=== PATIENT | female | born 2000 | race Two or more races ===

== ENCOUNTER 2024-11-27 16:04 | Emergency (ER) | payer BC, OTHER ==
[~2024-11-27] VITALS: Ht 167.6 cm; Wt 75.4 kg
[2024-11-27 16:42] LABS: Hematocrit 42.2 % (36.0-46.0); Hemoglobin 14.4 g/dL (12.2-16.2); Mean Corpuscular Hemoglobin 27.3 pg (28.0-32.0); Mean Corpuscular Volume 79.9 fL (80.0-100.0); Nucleated Red Blood Cells % 0.3 %
[2024-11-27 16:51] LABS: Chloride 107 mmol/L (98-107); Sodium 141 mmol/L (136-145)
[2024-11-27 16:52] LABS: Anion Gap 9 (5-15); Calcium 9.3 mg/dL (8.7-10.4); Carbon Dioxide 25 mmol/L (20-31); Potassium 3.5 mmol/L (3.5-5.1)
[2024-11-27 16:57] LABS: BUN/Creatinine Ratio 15.4 (10.0-20.0); Blood Urea Nitrogen 12 mg/dL (9-23); Glucose 99 mg/dL (74-106); Lipase 46 U/L (12-53)
[2024-11-27 17:06] LABS: Urine Protein, UAD TRACE (Negative)
--- NOTE | 2024-11-27 17:09 | ED.PDOC ---
GI ASSESSMENT HPI Comments This is a 24 year old female presenting to the ED with chief complaint of abdominal pain. Patient reports that she has been experiencing stabbing epigastric pain with associated nausea since this morning. Patient relays that she has no history of abdominal illness or pancreatitis. Patient denies any vomiting, diarrhea, fever, chills, dysuria, flank pain, or chest pain. Vital signs were stable on arrival. 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 CONTINUOUS MINING MACHINE OPERATOR History Family History Family History: Reviewed,noncontributory to illness Social History Smoker: Non-Smoker Alcohol: Denies ETOH Use Drugs: Denies Drug Use Lives In: Home Constitutional: denies: chills, diaphoresis, fatigue, fever, malaise, sweats, weakness, others EENTM: denies: blurred vision, double vision, ear bleeding, ear discharge, ear drainage, ear pain, ear ringing, eye pain, eye redness, hearing loss, mouth pain, mouth swelling, nasal discharge, nose bleeding, nose congestion, nose pain, photophobia, tearing, throat pain, throat swelling, voice changes, others Respiratory: denies: cough, hemoptysis, orthopnea, SOB at rest, shortness of breath, SOB with excertion, stridor, wheezing, others Cardiovascular: denies: chest pain, dizzy spells, diaphoresis, Dyspnea on ex ertion, edema, irregular heart beat, left arm pain, lightheadedness, palpitations, PND, syncope, others Gastrointestinal: reports: abdominal pain, nausea; denies: abdomen distended, blood streaked bowels, constipated, diarrhea, dysphagia, difficulty swallowing, hematemesis, melena, poor appetite, poor fluid intake, rectal bleeding, rectal pain, vomiting, others Genitourinary: denies: abnormal vagina bleeding, burning, dyspareunia, dysuria, flank pain, frequency, hematuria, incontinence, pain, , vagina discharge, urgency, others Neurological: denies: dizziness, fainting, headache, left sided numbness, left sided weakness, numbness, paresthesia, pre-existing deficit, right sided numbness, right sided weakness, seizure, speech problems, tingling, tremors, weakness, others Musculoskeletal: denies: back pain, gout, joint pain, joint swelling, muscle pain, muscle stiffness, neck pain, others Integumetry: denies: bruises, change in color, change in hair/nails, dryness, laceration, lesions, lumps, rash, wounds, others Allergic/Immunocompromised: denies: Difficulty Healing, Frequent Infections, Hives, Itching, others Hematologic/Lymphatic: denies: anemia, blood clots, easy bleeding, easy bruisi ng, swollen glands, others Endocrine: denies: excessive hunger, excessive sweating, excessive thirst, exce ssive urination, flushing, intolerance to cold, intolerance to heat, unexplained weight gain, unexplained weight loss, others Psychiatric: denies: anxiety, bipolar disorder, depression, hopeless, panic disorder, schizophrenia, sleepless, suicidal, others All Other Systems: Reviewed and Negative Physical Exam General Appearance: Moderate Distress (Due to epigastric pain concerns.), Normal HEENT: Normal ENT Inspection, Pharynx Normal, TMs Normal Neck: Full Range of Motion, Non-Tender, Normal, Normal Inspection Respiratory: Chest Non-Tender, Lungs Clear, No Accessory Muscle Use, No Respiratory Distress, Normal Breath Sounds Cardiovascular: No Edema, No JVD, No Murmur, No Gallop, Normal Peripheral Pulses, Regular Rate/Rhythm Breast Exam: Deferred Gastrointestinal: Other (Diffuse epigastric tenderness to palpation bilaterally. No pulsatile masses. Abdomen was reasonably soft.) Genitalia: Deferred Pelvic: Deferred Rectal: Deferred Extremities: No calf tenderness, Normal capillary refill, Normal inspection, Normal range of motion, Non-tender, No pedal edema Neurologic: Alert, No Motor Deficits, Normal Affect, Normal Mood, No Sensory Deficits Cerebellar Function: Normal Reflexes: Normal Skin: Dry, Normal Color, Warm Lymphatic: No Adenopathy Was a procedure done? Was a procedure done?: No GI differential Dx Differential Diagnosis: Cholecystitis, Esophagitis, Gastritis/PUD, Gastroenteritis, Pancreatitis, Stress Ulcer X-Ray, Labs, Meds, VS Vital Signs Date Time Temp Pulse Resp B/P (MAP) Pulse Ox O2 Delivery O2 Flow Rate FiO2 11/27/24 17:33 116 16 153/86 11/27/24 17:22 116 16 96 Room Air 11/27/24 17:22 98.7 116 16 153/86 (108) 96 98.7 11/27/24 16:15 98.0 114 16 138/84 (102) 98 98.0 Lab Test 11/27/24 16:24 11/27/24 16:20 Range/Units White Blood Count 7.4 4.4-10.8 10^3/uL Red Blood Count 5.28 H 4.0-5.20 10^6/uL Hemoglobin 14.4 12.2-16.2 g/dL Hematocrit 42.2 36.0-46.0 % Mean Corpuscular Volume 79.9 L 80.0-100.0 fL Mean Corpuscular Hemoglobin 27.3 L 28.0-32.0 pg Mean Corpuscular Hemoglobin Concent 34.1 32.0-36.0 g/dL Red Cell Distribution Width 15.2 H 11.8-14.3 % Platelet Count 232 140-450 10^3/uL Mean Platelet Volume 9.9 6.9-10.8 fL Neutrophils (%) (Auto) 59.9 37.0-80.0 % Lymphocytes (%) (Auto) 31.8 10.0-50.0 % Monocytes (%) (Auto) 6.2 0.0-12.0 % Eosinophils (%) (Auto) 1.6 0.0-7.0 % Basophils (%) (Auto) 0.5 0.0-2.0 % Neutrophils # (Auto) 4.4 1.6-8.6 10 ^3/uL Lymphocytes # (Auto) 2.4 0.4-5.4 10 ^3/uL Monocytes # (Auto) 0.5 0-1.3 10 ^3/uL Eosinophils # (Auto) 0.1 0-0.8 10 ^3/uL Basophils # (Auto) 0 0-0.2 10 ^3/uL Nucleated Red Blood Cells 0.3 % Sodium Level 141 136-145 mmol/L Potassium Level 3.5 3.5-5.1 mmol/L Chloride Level 107 98-107 mmol/L Carbon Dioxide Level 25 20-31 mmol/L Anion Gap 9 5-15 Blood Urea Nitrogen 12 9-23 mg/dL Creatinine 0.78 0.550-1.02 mg/dL Glomerular Filtration Rate Calc 109 >90 mL/min BUN/Creatinine Ratio 15.4 10.0-20.0 Serum Glucose 99 74-106 mg/dL Calcium Level 9.3 8.7-10.4 mg/dL Troponin I High Sensitivity < 3 L </=34 ng/L Lipase 46 12-53 U/L Urine Color Yellow Yellow Urine Clarity Turbid H Clear Urine pH 5.5 5.0-9.0 Urine Specific [place] 1.028 1.001-1.035 Urine Protein Trace H Negative Urine Ketones Negative Negative Urine Blood Negative Negative /uL Urine Nitrite Negative Negative Urine Bilirubin Negative Negative Urine Urobilinogen Normal Negative mg/dL Urine Leukocyte Esterase Negative Negative /uL Urine RBC 1 0 - 4 /hpf Urine Microscopic WBC 2 0-5 /HPF Urine Squamous Epithelial Cells Many <5 /hpf Urine Bacteria None seen None Seen /hpf Urine Mucus Few None Seen Urine Glucose Normal Normal mg/dL Urine Test Negative Negative Current Medications Medications (Trade) Dose Ordered Sig/Nando Route Start Time Stop Time Status Last Admin Morphine Sulfate 2 mg ONCE ONCE IV 11/27/24 16:30 11/27/24 16:31 DC 11/27/24 17:33 Ondansetron HCl (Zofran) 4 mg ONCE ONCE IV 11/27/24 17:30 11/27/24 17:31 DC 11/27/24 17:34 X-Ray, Labs, Meds, VS Comment All studies performed the ED were evaluated by me personally. Serum and urinalysis was unremarkable for any systemic concerns including unremarkable cardiac and pancreatic markers. CT of abdomen and pelvis was unremarkable for any intra-abdominal concerns. Patient may be experiencing some level of gastric ulcer concern. I will send the patient home with some supportive medication, but advised the patient to follow up with the primary care provider in the next few days for re-evaluation and continued management if necessary. Time of 1ST Reevaluation: 18:35 Reevaluation 1ST: Improved Consultation: PCP, GI Patient Education/Counseling: Diagnosis, Treatment Family Education/Counseling: Diagnosis, Treatment, No Family Present SEPSIS Sepsis Screen Recent Procedure: No On Antibiotic Therapy: No Respiratory Rate >20: No Heart Rate >90: No Temp<36 C (96.8 F) or >38.3 C: No SBP <90 or MAP <65 mmHG: No New Acute Mental Status Change: No Is the patient on CPAP, BIPAP,: No Physician Orders Ct Ab Pel Wo Con-No Oral Or Iv (11/27/24 16:21) Saline Lock (11/27/24 17:03) Vital Signs Date Time Temp Pulse Resp B/P (MAP) Pulse Ox O2 Delivery O2 Flow Rate FiO2 11/27/24 17:33 116 16 153/86 11/27/24 17:22 116 16 96 Room Air 11/27/24 17:22 98.7 116 16 153/86 (108) 96 98.7 11/27/24 16:15 98.0 114 16 138/84 (102) 98 98.0 Laboratory Tests Test 11/27/24 16:24 White Blood Count 7.4 10^3/uL (4.4-10.8) Medications Medications Dose Ordered Sig/Nando Route Start Time Stop Time Status Last Admin Dose Admin Morphine Sulfate 2 mg ONCE ONCE IV 11/27/24 16:30 11/27/24 16:31 DC 11/27/24 17:33 Ondansetron HCl 4 mg ONCE ONCE IV 11/27/24 17:30 11/27/24 17:31 DC 11/27/24 17:34 Departure 1 Departure Time of Disposition: 18:35 Impression: Primary Impression: Abdominal pain Disposition: HOME / SELF CARE / HOMELESS Condition: Stable Additional Instructions: Advised patient utilize medication as directed as well as additional medication as needed. If symptoms continue, patient will need to follow up with the primary care provider for GI referral and evaluation. e-Prescriptions Ondansetron Odt 4MG Tab (ZOFRAN PO) 4 Mg Tb 4 MG PO Q6HP PRN, #15 TAB ODT TAB-DISSOLVE IN MOUTH, THEN SWALLOW Prov: CHARLOTTE HERRERA PAC 11/27/24 Dicyclomine Hcl (BENTYL CAPSULE) 10 Mg Cp 1 CAP PO Q6HPRN, #20 CAP 0 Refills Prov: CHARLOTTE HERRERA PAC 11/27/24 Omeprazole Magnesium (Omeprazole) 20 Mg Tab 20 MG PO DAILY for 21 Days, #21 TAB Prov: CHARLOTTE HERRERA PAC 11/27/24 Discharged With: Self, Friend Critical Care Note Critical Care Time?: No Stability Stability form required: No Heart Score Heart Score: Heart Score Response (Comments) Value History N/A 0 EKG N/A 0 Age N/A 0 Risk Factors N/A 0 Troponin N/A 0 Total 0 I personally scribed for CHARLOTTE HERRERA PAC ([email or web address]) on 11/27/24 at 17:09. Electronically submitted by Ramirez Garcia ([email or web address]). CHARLOTTE HERRERA PAC Nov 27, 2024 17:09
[2024-11-27] MEDS: ONDANSETRON ODT 4 MG TAB PO ONE (17:18)
[2024-11-27] MEDS: MORPHINE SULFATE INJ 2 MG/ml SYRG IV ONE (17:33)
[2024-11-27] MEDS: ONDANSETRON HCL 4 MG/2 ML VIAL IV ONE (17:34)
--- NOTE | 2024-11-27 17:59 | DVH ---
Exam: CT CT AB PEL WO CON-NO ORAL OR IV History: Sharp and diffuse epigastric pain Comparison Study: None TECHNIQUE: Multidetector CT of the abdomen and pelvis was performed from lung bases to pubic symphysi s. Imaging was performed without IV contrast. Axial, coronal, and sagittal multiplanar reformats were obtained from the axial data set by the technologist. RADIATION DOSE: DLP 446.54 mGy.cm; CTDI vol 8.1 mGy. Findings: Lungs: The lung bases are clear. Heart: No cardiomegaly or pericardial effusion. Liver: Unremarkable. Gallbladder: Contracted gallbladder, but otherwise unremarkable. Spleen: Unremarkable Pancreas: Unremarkable Adrenals: Unremarkable Kidneys: Unremarkable GI tract: Unremarkable : Unremarkable. Vasculature: Unremarkable Lymphadenopathy: Absent Peritoneum: No ascites Musculoskeletal: Unremarkable Soft tissues: Unremarkable Impression: 1. No acute abdominopelvic abnormalities.
[2024-11-27] MEDS ORDERED: ZOFR4T PO (18:37)
[2024-11-27] MEDS ORDERED: DICY10CA PO (18:37)
[2024-11-27] MEDS ORDERED: OMEP-434 PO (18:37)
[2024-11-27 18:52] VITALS: BP 129/70; PULSE 87; RESP 16; TEMP 98; O2SAT 99
== END 2024-11-27 18:57 | disposition home or self-care (01) ==
LOC: EEVIPCON 16:04 → ER 16:04
DX: R10.13 Epigastric pain (principal); R11.0 Nausea
CPT/HCPCS: 36415; 74176; 80048; 81001; 81025; 83690; 84484; 85025; 96374; 96375; 99285; J2270; J2405

== ENCOUNTER 2025-04-14 17:12 | Inpatient (IN) | payer BC, MEDICAID ==
[~2025-04-14 17:12] MED LIST: DICY10CA PO; OMEP-434 PO; ZOFR4T PO
[2025-04-14 17:53] LABS: Hematocrit 39.6 % (36.0-46.0); Hemoglobin 13.3 g/dL (12.2-16.2); Mean Corpuscular Hemoglobin 27.2 pg (28.0-32.0); Mean Corpuscular Volume 80.9 fL (80.0-100.0); Nucleated Red Blood Cells % 0.2 %
--- NOTE | 2025-04-14 18:21 | ECG ---
[facility] Test Date: 2025-04-14 Test Time: 18:19:40 Pat Name: ARON LEWIS Department: ED Room: [address] [place] [address] Gender: F [employer]: JODIE : [id number] Requested By: INDIGO MALONEY Order Number: [id number] Reading MD: Eladio Cruz Measurements Intervals [place] Rate: 102 P: 56 [place]: 156 QRS: 95 QRSD: 237 T: 0 QT: 340 QTc: 443 Interpretive Statements Sinus tachycardia IVCD, consider atypical RBBB Probable left ventricular hypertrophy Artifact in lead(s) II,III,aVR,aVL,aVF,V1,V3,V4,V5,V6 Electronically Signed On 04-16-2025 20:06:59 PST by Eladio Cruz Please click the below link to view image of tracing.
[2025-04-14 18:24] LABS: Chloride 103 mmol/L (98-107); Potassium 3.5 mmol/L (3.5-5.1); Sodium 140 mmol/L (136-145)
[2025-04-14 18:25] LABS: Anion Gap 9 (5-15); Carbon Dioxide 28 mmol/L (20-31)
[2025-04-14 18:26] LABS: Calcium 9.2 mg/dL (8.7-10.4)
[2025-04-14 18:30] LABS: BUN/Creatinine Ratio 10.7 (10.0-20.0); Glucose 88 mg/dL (74-106)
[2025-04-14 18:31] LABS: Blood Urea Nitrogen 9 mg/dL (9-23)
--- NOTE | 2025-04-14 18:50 | ED.PDOC ---
HPI Comments HPI: 24-year-old female who presents to the ED for chief complaint of chest pain. -patient states she has been having chest pain since last night p.m. - patient states her chest pain is intermittent dull in nature , substernal , with the pain radiating to the left shoulder and left elbow and no associated exacerbating or relieving factors. - patient is having having associated symptoms including dizziness and blurred vision - patient states she was otherwise seen at [facility] emergency room a few months prior and states she had elevated blood pressure during her visit and was given blood pressure medications in the ER - patient states she was also given a outpatient prescription for blood pressure medications but states she never picked it up - patient now in the ED otherwise has stable vitals including blood pressure 137/95 and heart rate of 111 with otherwise stable vitals - patient in the ED otherwise denies any other symptoms Past medical history: Asthma , pituitary adenoma Past Surgical history: Denies Allergies: Denies social history: Denies ETOH use, denies tobacco use, denies drug use HPI: Poor Historian. REVIEW OF SYSTEMS: CONSTITUTIONAL: Denies acute: fever, diaphoresis, chills, generalized weakness. HEAD: Denies acute: headache, photophobia Eyes: Denies acute: Double vision, vision loss, eye pain, eye discharge. EARS: Denies acute: tinnitus, hearing loss, ear discharge, ear pain, THROAT: Denies acute: sore throat, swelling, difficulty swallowing , pain with swallowing, change in voice. NECK: Denies acute: neck pain, neck swelling, stiff neck. HEART: Denies acute : , palpitations, LUNGS: Denies acute: SOB, wheezing, cough, hemoptysis ABDOMEN: Denies acute: abdominal pain, Nausea, Vomiting, diarrhea, melena , hematemesis, hematochezia SKIN: Denies acute: rash, redness, lesions, itchiness. EXTREMITIES: Denies acute: calf pain, numbness, tingling, weakness, Denies acute: Low back pain. Neuro: Denies acute: focal neurological deficit, motor or sensory focal neurological deficit, tremors, seizure like activity, confusion, change in mental status, loss of bowel or bladder function, cauda equina like symptoms. : Denies acute: dysuria, hematuria, flank pain, increase in urinary frequency. PSYCH: Denies acute: hallucination, suicidal ideation, homicidal ideation. FEMALE: Denies acute: abnormal vaginal bleeding, foul odor, unusual discharge. PHYSICAL EXAM: General: ----mild----acute distress, awake and alert. Head: normocephalic, atraumatic. No raccoon's eyes, no leonard sign. Neck: supple, trachea is midline, no swelling. Throat: Normal phonation. Eyes:, no erythema, no purulent discharge, no proptosis, no icterus. Heart: regular rate, regular rhythm, no significant murmur appreciated. Lungs: no apparent respiratory distress, Able to speak in full sentences. No wheezing, no rhonchi, no crackles. No stridors Clear to auscultation bilaterally. Abdomen: non tender to palpation, non distended, soft, no guarding, no rebound, + bowel sounds. Neuro: Awake, Alert, oriented to name, self, situation, follows commands GCS=15. Speech is normal. Skin: no petechia, no purpura, no cyanosis, non-pale, not jaundice. Lower extremities: --no - Pitting edema no deformity, no focal swelling, no calf TTP. Makes eye contact. moves all four extremities. Face: no apparent facial droop. Ambulating in the ED independently. ED COURSE: DISCLAIMER: This medical document was created using an electronic medical record system with voice recognition software and computerized dictation system. Although this document has been carefully reviewed, there might still be some phonetic and typographical errors. Occasional wrong-word or "sound-alike" substitutions may have occurred due to the inherent limitations of voice recognition software. These areas are purely typographical due to imperfections of the software programs and do not reflect any compromise in the patient's medical care. Please read the chart carefully and recognize, using context, where these substitutions have occurred. Chief Complaint: Chest Pain Time Seen by MD: 18:48 Primary Care Provider: ? Reviewed Notes: Medications, Allergies Allergies: Coded Allergies: NO KNOWN ALLERGIES (Unverified , 11/27/24) Home Meds Active Scripts Ondansetron Odt 4MG Tab (ZOFRAN PO) 4 Mg Tb, 4 MG PO Q6HP PRN, #15 TAB ODT TAB-DISSOLVE IN MOUTH, THEN SWALLOW Prov:CHARLOTTE HERRERA PAC 11/27/24 Dicyclomine Hcl (BENTYL CAPSULE) 10 Mg Cp, 1 CAP PO Q6HPRN, #20 CAP 0 Refills Prov:CHARLOTTE HERRERA PAC 11/27/24 Omeprazole Magnesium (Omeprazole) 20 Mg Tab, 20 MG PO DAILY for 21 Days, #21 TAB Prov:CHARLOTTE HERRERA PAC 11/27/24 Information Source: Patient Mode of Arrival: Ambulatory Brought in by: Self Past Medical History PAST MEDICAL HISTORY: Asthma Surgical History: Denies all surgeries CHIROPRACTIC NEUROLOGIST History: No Pertinent CHIROPRACTIC NEUROLOGIST History Family History Family History: Reviewed,noncontributory to illness Social History Smoker: Non-Smoker Alcohol: Denies ETOH Use Drugs: Denies Drug Use Lives In: Home EKG EKG : Pulse Rate (adult): 115 [place]: Normal Cardiac Rhythm: ST Block: None Hypertrophy: None ST: Normal Was a procedure done? Was a procedure done?: No CP Differential Dx Differential Diagnosis: A-fib, A-Flutter, Angina, Anxiety / Panic Attack, Atrial Dysrhythmia, Electrolyte Disorder, Heart Failure, Hyperthyroidism, Hyperventilation, Hypoxia, MAT, GA, PAC's, PSVT, Pulmonary Embolus, PVC's, Sinus Tachycardia, Torsades De Pointes, Ventricular Dysrhythmia, V-Fib, V-Tach, WPW, N/A Differential Diagnosis: Other (Ddx include but not limitied to gastritis, musculoskeletal pain, radiculopathy, atypical chest pain, dissection, aneurysm, ACS, unstable angina, hiatal hernia, GERD, anxiety, costochondritis, PE, pneumothroax, neoplasm, cardiac ischemia, drug abuse, anemia.) X-Ray, Labs, Meds, VS Vital Signs Date Time Temp Pulse Resp B/P (MAP) Pulse Ox O2 Delivery O2 Flow Rate FiO2 04/14/25 22:40 82 04/14/25 22:40 98.0 82 16 124/88 (100) 99 98.0 04/14/25 20:18 84 04/14/25 18:50 115 04/14/25 18:19 102 04/14/25 17:18 115 04/14/25 17:18 115 04/14/25 17:14 98.0 111 18 137/95 100 98.0 Lab Test 04/14/25 21:11 04/14/25 19:00 04/14/25 18:49 04/14/25 17:40 Range/Units Troponin I High Sensitivity < 3 L < 3 L < 3 L </=34 ng/L Urine Color Light-yellow Yellow Urine Clarity Turbid H Clear Urine pH 6.0 5.0-9.0 Urine Specific [place] 1.014 1.001-1.035 Urine Protein Negative Negative Urine Ketones Negative Negative Urine Blood Negative Negative /uL Urine Nitrite Negative Negative Urine Bilirubin Negative Negative Urine Urobilinogen Normal Negative mg/dL Urine Leukocyte Esterase Negative Negative /uL Urine RBC <1 0 - 4 /hpf Urine Microscopic WBC 1 0-5 /HPF Urine Squamous Epithelial Cells Mod <5 /hpf Urine Bacteria None seen None Seen /hpf Urine Mucus Few None Seen Urine Glucose Normal Normal mg/dL Urine Opiates Screen Neg NEGATIVE Urine Fentanyl Screen Neg NEGATIVE Urine Barbiturates Screen Neg NEGATIVE Urine Phencyclidine Screen Neg NEGATIVE Urine Amphetamines Screen Neg NEGATIVE Urine Benzodiazepines Screen Neg NEGATIVE Urine Cocaine Screen Neg NEGATIVE Urine Cannabinoids Screen Neg NEGATIVE Sodium Level 141 140 136-145 mmol/L Potassium Level 3.5 3.5 3.5-5.1 mmol/L Chloride Level 105 103 98-107 mmol/L Carbon Dioxide Level 26 28 20-31 mmol/L Anion Gap 10 9 5-15 Blood Urea Nitrogen 10 9 9-23 mg/dL Creatinine 0.87 0.84 0.550-1.02 mg/dL Glomerular Filtration Rate Calc 95 99 >90 mL/min BUN/Creatinine Ratio 11.5 10.7 10.0-20.0 Serum Glucose 88 88 74-106 mg/dL Lactic Acid Level 0.7 0.4-2.0 mmol/L Calcium Level 9.3 9.2 8.7-10.4 mg/dL Magnesium Level 2.0 1.6-2.6 mg/dL Total Bilirubin 0.7 0.2-1.0 mg/dL Aspartate Amino Transferase (AST) 26 13-40 U/L Alanine Aminotransferase (ALT) 52 H 7-40 U/L Alkaline Phosphatase 62 46-116 U/L Total Protein 7.2 5.7-8.2 g/dL Albumin 4.4 3.2-4.8 g/dL Thyroid Stimulating Hormone (TSH) 1.91 0.55-4.78 uIU/mL White Blood Count 6.3 4.4-10.8 10^3/uL Red Blood Count 4.89 4.0-5.20 10^6/uL Hemoglobin 13.3 12.2-16.2 g/dL Hematocrit 39.6 36.0-46.0 % Mean Corpuscular Volume 80.9 80.0-100.0 fL Mean Corpuscular Hemoglobin 27.2 L 28.0-32.0 pg Mean Corpuscular Hemoglobin Concent 33.6 32.0-36.0 g/dL Red Cell Distribution Width 14.3 11.8-14.3 % Platelet Count 224 140-450 10^3/uL Mean Platelet Volume 9.7 6.9-10.8 fL Neutrophils (%) (Auto) 59.1 37.0-80.0 % Lymphocytes (%) (Auto) 32.6 10.0-50.0 % Monocytes (%) (Auto) 6.3 0.0-12.0 % Eosinophils (%) (Auto) 1.6 0.0-7.0 % Basophils (%) (Auto) 0.4 0.0-2.0 % Neutrophils # (Auto) 3.7 1.6-8.6 10 ^3/uL Lymphocytes # (Auto) 2.0 0.4-5.4 10 ^3/uL Monocytes # (Auto) 0.4 0-1.3 10 ^3/uL Eosinophils # (Auto) 0.1 0-0.8 10 ^3/uL Basophils # (Auto) 0 0-0.2 10 ^3/uL Nucleated Red Blood Cells 0.2 % Current Medications Medications (Trade) Dose Ordered Sig/Nando Route Start Time Stop Time Status Last Admin Sodium Chloride 1,000 ml @ 1,000 mls/hr Q1H ONCE IV 04/14/25 20:30 04/14/25 21:29 DC 04/14/25 22:29 [place] [id number] Ph: [phone] DIAGNOSTIC IMAGING Diagnostic Imaging Report : [id number] Signed PATIENT: ARON LEWIS ACCT: [id number] UNIT: [id number] : 2000 LOC: ER ROOM / BED: / AGE / SEX: 24 / F ADM STATUS: REG ER SERVICE 29 ORDERING PHYSICIAN: DORIAN JOHNSON DO PROCEDURE(s): CXRP - CHEST PORTABLE REASON: cp ORDER NUMBER(s): [id number], ACCESSION NUMBER(s): [id number] CHEST RADIOGRAPH INDICATION: cp TECHNIQUE: Single frontal view of the chest was obtained COMPARISON: None FINDINGS: Lines and Tubes: None Lungs: No focal consolidation. Pleura: No effusion. No pneumothorax. Cardiomediastinal contours: Unremarkable Bones: No acute osseous abnormality. IMPRESSION: No acute cardiopulmonary disease. ATED BY: LAENNE SUÁREZ DO DICTATED DATE/TIME: 04/14/251900 SIGNED BY: LEANNE SUÁREZ DO SIGNED DATE/TIME: 04/14/251900 CC: Time of 1ST Reevaluation: 18:49 (Patient has a repeat EKG which showed sinus tach heart rate 102; patient denies any symptomatology at this time) Reevaluation 1ST: Improved Patient Education/Counseling: Diagnosis, Treatment Family Education/Counseling: No Family Present Comments MDM: patient presented with the above HPI.----cardiac--workup was initiated. patient was found with the above mentioned diagnosis. the following medications were ordered: please refer to order lists of meds and tests obtained by myself Dr. Johnson. Patient ED course and VS have been stabilized. Patient has been reassessed in the ED and remained in a stable condition. Pertinent incidental findings were discussed with the patient and/or family. Patient/family voices understanding and is agreeable with plan. Patient has been observed in the ED adequate length of time to insure improvement/stability. Escalation of care considered: Consideration of escalation to observation or admission Although the patient workup is unrevealing. Patient has some unusual symptoms that has been going on for awhile and progressively getting worse. Patient had reported tachycardia and also noted tachycardic here of unknown etiology with the associated chest pain and radiation to the left upper extremity and dizziness spells. Patient tried to reach her family doctor but unable to see them until June of next year. Patient was ADMITTED to the medicine team for further evaluation and treatment of their presentation. All the reports of any imaging studies that were ordered by myself were reviewed by myself. SEPSIS Sepsis Screen Date sepsis recognized/suspect: Apr 14, 2025 Time Sepsis recognized/suspect: 1716 Recent Procedure: No On Antibiotic Therapy: No Respiratory Rate >20: No Heart Rate >90: Yes Temp<36 C (96.8 F) or >38.3 C: No SBP <90 or MAP <65 mmHG: No New Acute Mental Status Change: No Is the patient on CPAP, BIPAP,: No Physician Orders Electrocardigram (04/14/25 18:17) Electrocardigram (04/14/25 20:17) Button Puncher (04/14/25 ) Chest Portable (04/14/25 18:30) Vital Signs Date Time Temp Pulse Resp B/P (MAP) Pulse Ox O2 Delivery O2 Flow Rate FiO2 04/14/25 22:40 82 04/14/25 22:40 98.0 82 16 124/88 (100) 99 98.0 04/14/25 20:18 84 04/14/25 18:50 115 04/14/25 18:19 102 04/14/25 17:18 115 04/14/25 17:18 115 04/14/25 17:14 98.0 111 18 137/95 100 98.0 Laboratory Tests Test 04/14/25 17:40 04/14/25 18:49 White Blood Count 6.3 10^3/uL (4.4-10.8) Lactic Acid Level 0.7 mmol/L (0.4-2.0) Medications Medications Dose Ordered Sig/Nando Route Start Time Stop Time Status Last Admin Dose Admin Sodium Chloride 1,000 ml @ 1,000 mls/hr Q1H ONCE IV 04/14/25 20:30 04/14/25 21:29 DC 04/14/25 22:29 Departure 1 Departure Time of Disposition: 23:33 Impression: Primary Impression: Chest pain Additional Impression: Dizzy spells Disposition: ADMITTED INPATIENT Admit to: Tele Condition: Guarded Discharged With: Self Critical Care Note Critical Care Time?: No Heart Score Heart Score: Heart Score Response (Comments) Value History Slightly Suspicious 0 EKG Normal 0 Age <45 0 Risk Factors No known risk factors 0 Troponin Normal limit 0 Total 0 I personally scribed for DORIAN JOHNSON DO ([email or web address]) on 04/14/25 at 18:50. Electronically submitted by Nely Bolanos ([email or web address]). I personally scribed for DORIAN JOHNSON DO ([email or web address]) on 04/14/25 at 19:16. Electronically submitted by Arnaldo Landin ([email or web address]). DORIAN JOHNSON DO Apr 14, 2025 18:50
--- NOTE | 2025-04-14 19:03 | DVH ---
CHEST RADIOGRAPH INDICATION: cp TECHNIQUE: Single frontal view of the chest was obtained COMPARISON: None FINDINGS: Lines and Tubes: None Lungs: No focal consolidation. Pleura: No effusion. No pneumothorax. Cardiomediastinal contours: Unremarkable Bones: No acute osseous abnormality. IMPRESSION: No acute cardiopulmonary disease.
[2025-04-14 19:18] LABS: Albumin 4.4 g/dL (3.2-4.8); Alkaline Phosphatase 62 U/L (46-116); Anion Gap 10 (5-15); BUN/Creatinine Ratio 11.5 (10.0-20.0); Bilirubin, Total 0.7 mg/dL (0.2-1.0); Blood Urea Nitrogen 10 mg/dL (9-23); Calcium 9.3 mg/dL (8.7-10.4); Carbon Dioxide 26 mmol/L (20-31); Chloride 105 mmol/L (98-107); Glucose 88 mg/dL (74-106); Magnesium 2.0 mg/dL (1.6-2.6); Potassium 3.5 mmol/L (3.5-5.1); Sodium 141 mmol/L (136-145); Total Protein 7.2 g/dL (5.7-8.2)
[2025-04-14 19:19] LABS: Alanine Aminotransferase 52 U/L (7-40)
[2025-04-14 19:19] LABS: Urine Protein, UAD Negative (Negative)
[2025-04-14] MEDS: SODIUM CHLORIDE 0.9% 1,000 ML IV ONE (22:29)
[2025-04-14 23:24] LABS: Amphetamine Screen, Urine Neg (NEGATIVE); Barbiturate Scree,Urine Neg (NEGATIVE); Benzodiazephine Screen, Urine Neg (NEGATIVE); Cannabinoid Screen, Urine Neg (NEGATIVE); Cocaine Screen, Urine Neg (NEGATIVE); Opiate Scree,Urine Neg (NEGATIVE); Phencyclidine Screen, Urine Neg (NEGATIVE)
[2025-04-15] MEDS: ENOXAPARIN SOD 40 MG/0.4 ML SYRINGE SC SCH (02:55)
[2025-04-15] MEDS ORDERED: diphenhydrAMINE HCL 50 MG/1 ML VL IV ONE (04:45)
[2025-04-15] MEDS ORDERED: FAMOTIDINE (10MG/ML) 2ML VL IV ONE (04:45)
--- NOTE | 2025-04-15 05:57 | DVHHPRES ---
History of Present Illness Resident Creating Document: NEVILLE MOREJON RESIDENT History of Present Illness Cherelle Darling, a 24 year old female with past medical history of hypertension, non-hormone secreting pituitary microadenoma, anxiety, depression most likely bipolar disorder presented to the ER with a history of central chest pain, dull and stabbing, constant discomfort. She reports the pain starts spontaneously even when lying down, no relation with exertion. However, the patient reports improvement in her pain while history taking. She also reports measuring her blood pressure in the morning at home which was 160/95 and her heart rate was in 130s. The patient has dizziness, which she describes as the room spinning around her. She has bilateral shoulder pain, lasts for 3 minutes and resolves. She also has nausea, and vomiting occasionally with this constellation of symptoms She also reports having blurry vision. She lost consciousness wants during May this year. She does not have thyroid disorders. Currently no other complaints reported. Few months back, she was diagnosed to have pituitary microadenoma, which is 7 mm, she was told it is non hormone secreting. Past medical history: As above Past surgical history: Denies Menstruation: Regular, LMP:06 April 2025 Allergies: None Home medications: Lexapro, unknown antihypertensive 25 mg. Smoking: None Marijuana: Occasionally, last use was 2 months ago. Alcohol: None Code status: Full code Review of Systems Allergies: Coded Allergies: NO KNOWN ALLERGIES (Unverified , 11/27/24) Medications Current Medications Medications Dose Ordered Sig/Nando Route Start Time Stop Time Status Last Admin Dose Admin Enoxaparin Sodium 40 mg DAILY SC 04/15/25 02:00 04/15/25 02:55 40 MG Exam Vital Signs Vital Signs Date Time Temp Pulse Resp B/P (MAP) Pulse Ox O2 Delivery O2 Flow Rate FiO2 04/15/25 02:42 97.8 78 18 131/88 (102) 98 97.8 Exam Pt is lying on bed General Appearance: Alert, Oriented X3, Cooperative, Mild distress HEENT: Atraumatic, Mucous membranes moist/pink Respiratory: Clear to auscultation, Normal air movement, No added sounds Cardiovascular: Regular rate, Normal S1, Normal S2, No murmurs Abdominal/ : Active bowel sounds, Soft, no distention, no tenderness Extremities: No edema, Normal pulses, No tenderness/swelling Skin: No Significant rash, except past surgical scars Neuro: Normal speech, sensorimotor deficits none Psych/Mental Status: Mental status NL, Mood NL Nurse was there as photographer motion picture during examination Labs/Xrays Labs Test 04/14/25 21:11 04/14/25 19:00 04/14/25 18:49 04/14/25 17:40 Range/Units Troponin I High Sensitivity < 3 L </=34 ng/L Urine Color Light-yellow Yellow Urine Clarity Turbid H Clear Urine pH 6.0 5.0-9.0 Urine Specific [place] 1.014 1.001-1.035 Urine Protein Negative Negative Urine Ketones Negative Negative Urine Blood Negative Negative /uL Urine Nitrite Negative Negative Urine Bilirubin Negative Negative Urine Urobilinogen Normal Negative mg/dL Urine Leukocyte Esterase Negative Negative /uL Urine RBC <1 0 - 4 /hpf Urine Microscopic WBC 1 0-5 /HPF Urine Squamous Epithelial Cells Mod <5 /hpf Urine Bacteria None seen None Seen /hpf Urine Mucus Few None Seen Urine Glucose Normal Normal mg/dL Urine Opiates Screen Neg NEGATIVE Urine Fentanyl Screen Neg NEGATIVE Urine Barbiturates Screen Neg NEGATIVE Urine Phencyclidine Screen Neg NEGATIVE Urine Amphetamines Screen Neg NEGATIVE Urine Benzodiazepines Screen Neg NEGATIVE Urine Cocaine Screen Neg NEGATIVE Urine Cannabinoids Screen Neg NEGATIVE Sodium Level 141 136-145 mmol/L Potassium Level 3.5 3.5-5.1 mmol/L Chloride Level 105 98-107 mmol/L Carbon Dioxide Level 26 20-31 mmol/L Anion Gap 10 5-15 Blood Urea Nitrogen 10 9-23 mg/dL Creatinine 0.87 0.550-1.02 mg/dL Glomerular Filtration Rate Calc 95 >90 mL/min BUN/Creatinine Ratio 11.5 10.0-20.0 Serum Glucose 88 74-106 mg/dL Lactic Acid Level 0.7 0.4-2.0 mmol/L Calcium Level 9.3 8.7-10.4 mg/dL Magnesium Level 2.0 1.6-2.6 mg/dL Total Bilirubin 0.7 0.2-1.0 mg/dL Aspartate Amino Transferase (AST) 26 13-40 U/L Alanine Aminotransferase (ALT) 52 H 7-40 U/L Alkaline Phosphatase 62 46-116 U/L Total Protein 7.2 5.7-8.2 g/dL Albumin 4.4 3.2-4.8 g/dL Thyroid Stimulating Hormone (TSH) 1.91 0.55-4.78 uIU/mL White Blood Count 6.3 4.4-10.8 10^3/uL Red Blood Count 4.89 4.0-5.20 10^6/uL Hemoglobin 13.3 12.2-16.2 g/dL Hematocrit 39.6 36.0-46.0 % Mean Corpuscular Volume 80.9 80.0-100.0 fL Mean Corpuscular Hemoglobin 27.2 L 28.0-32.0 pg Mean Corpuscular Hemoglobin Concent 33.6 32.0-36.0 g/dL Red Cell Distribution Width 14.3 11.8-14.3 % Platelet Count 224 140-450 10^3/uL Mean Platelet Volume 9.7 6.9-10.8 fL Neutrophils (%) (Auto) 59.1 37.0-80.0 % Lymphocytes (%) (Auto) 32.6 10.0-50.0 % Monocytes (%) (Auto) 6.3 0.0-12.0 % Eosinophils (%) (Auto) 1.6 0.0-7.0 % Basophils (%) (Auto) 0.4 0.0-2.0 % Neutrophils # (Auto) 3.7 1.6-8.6 10 ^3/uL Lymphocytes # (Auto) 2.0 0.4-5.4 10 ^3/uL Monocytes # (Auto) 0.4 0-1.3 10 ^3/uL Eosinophils # (Auto) 0.1 0-0.8 10 ^3/uL Basophils # (Auto) 0 0-0.2 10 ^3/uL Nucleated Red Blood Cells 0.2 % SEPSIS Sepsis Screen Date sepsis recognized/suspect: Apr 14, 2025 Time Sepsis recognized/suspect: 1715 Recent Procedure: No On Antibiotic Therapy: No Respiratory Rate >20: No Heart Rate >90: Yes Temp<36 C (96.8 F) or >38.3 C: No SBP <90 or MAP <65 mmHG: No New Acute Mental Status Change: No Is the patient on CPAP, BIPAP,: No Physician Orders Admit (04/15/25 01:54) Allergies (04/15/25 01:54) Code Status (04/15/25 01:54) Complete Blood Count (04/16/25 04:00) Comprehensive Metabolic Panel (04/16/25 04:00) Cardiac Diet-2gna,Lofat,Lochol (04/15/25 Breakfast) Enoxaparin Sodium (Lovenox) (04/15/25 02:00) Notify Of Changes From Base (04/15/25 01:54) Cutter V Groove For 24 Hours (04/15/25 01:54) Emergency Dysrhythmia Protocol (04/15/25 01:54) Rhythm Strips Once Every Shift (04/15/25 01:54) Vital Signs Date Time Temp Pulse Resp B/P (MAP) Pulse Ox O2 Delivery O2 Flow Rate FiO2 04/15/25 02:42 97.8 78 18 131/88 (102) 98 97.8 04/14/25 22:40 82 04/14/25 22:40 98.0 82 16 124/88 (100) 99 98.0 Laboratory Tests Test 04/14/25 18:49 Lactic Acid Level 0.7 mmol/L (0.4-2.0) Medications Medications Dose Ordered Sig/Nando Route Start Time Stop Time Status Last Admin Dose Admin Enoxaparin Sodium 40 mg DAILY SC 04/15/25 02:00 04/15/25 02:55 40 MG Sodium Chloride 1,000 ml @ 1,000 mls/hr Q1H ONCE IV 04/14/25 20:30 04/14/25 21:29 DC 04/14/25 22:29 1,000 MLS/HR Assessment/Plan Assessment/Plan Chest pain rule out ACS EKG: No acute ischemic changes troponin 3 times WNL Sinus tachycardia TSH normal History of pituitary microadenoma Outpatient follow up with PCP and Endocrinology Questionable IBS Resume home medication dicyclomine if necessary Hypertension Monitor blood pressures Consider antihypertensive GI prophylaxis: Pantoprazole DVT prophylaxis: Patient is ambulatory, not indicated Diet: Cardiac Goals of care discussed with the patient for more than 27 minutes: Full code status Case discussed with Dr. Mccurdy, patient and RN Plan discussed with: Patient, Other (RN) My Orders Orders - NEVILLE MOREJON Procedure Category Date Status Time Admit ADMIT 04/15/25 Transmitted 01:54 Allergies CIERRA 04/15/25 In Process 01:54 Code Status CODE 04/15/25 Transmitted 01:54 Complete Blood Count LAB 04/16/25 Verified 04:00 Comprehensive LAB 12/11/25 Verified Metabolic Panel 04:00 Cardiac DIET 04/15/25 Transmitted Diet-2gna,Lofat,Lochol Breakfast Enoxaparin Sodium PHA 04/15/25 In Process (Lovenox) 02:00 Notify Of Changes [facility] 04/15/25 In Process From Base 01:54 Cutter V Groove For [facility] 04/15/25 In Process 24 Hours 01:54 Emergency Dysrhythmia [facility] 04/15/25 In Process Protocol 01:54 Rhythm Strips Once [facility] 04/15/25 In Process Every Shift 01:54 Visit Coding STANDARD RES Billing Provider: CANDACE MCCURDY MD Date of Service if different f: Apr 15, 2025 NEVILLE MOREJON RESIDENT Apr 15, 2025 05:57
[2025-04-15 06:31] VITALS: BP 132/83; PULSE 84; RESP 19; TEMP 98.1; O2SAT 99
[2025-04-15] MEDS: MORPHINE SULFATE INJ 2 MG/ml SYRG IV ONE (07:20)
--- NOTE | 2025-04-15 13:03 | ECG ---
[facility] Test Date: 2025-04-14 Test Time: 17:18:16 Pat Name: ARON LEWIS Department: ED Room: [address] [place] [address] Gender: F Marketing Proposal Specialist: NAOMI : 2000 Requested By: INDIGO MALONEY Order Number: [id number] Reading MD: Eladio Cruz Measurements Intervals [place] Rate: 115 P: 46 IN: 155 QRS: 85 QRSD: 86 T: -65 QT: 312 QTc: 432 Interpretive Statements Sinus tachycardia Borderline repolarization abnormality Electronically Signed On 04-16-2025 20:06:00 PST by Eladio Cruz Please click the below link to view image of tracing.
--- NOTE | 2025-04-15 16:27 | ECG ---
[facility] Test Date: 2025-04-14 Test Time: 20:18:01 Pat Name: ARON LEWIS Department: ED Room: [address] [place] [address] Gender: F Mechanical Press Operator: MARCOS : 2000 Requested By: INDIGO MALONEY Order Number: [id number] Reading MD: Eladio Cruz Measurements Intervals [place] Rate: 84 P: 72 WV: 143 QRS: 93 QRSD: 103 T: 46 QT: 374 QTc: 443 Interpretive Statements Sinus rhythm Borderline right axis deviation Artifact in lead(s) II,III,aVR,aVL,aVF,V1,V2,V3,V4,V5,V6 Electronically Signed On 04-16-2025 20:07:27 PST by Eladio Cruz Please click the below link to view image of tracing.
--- NOTE | 2025-04-15 17:55 | DVHDSRES ---
Discharge Summary Date of Admission Resident Creating Document: RUBIN FORMAN RESIDENT Apr 15, 2025 at 01:54 Date of Discharge: Apr 15, 2025 Admitting Diagnosis Chest pain rule out ACS Labs/Diagnostic Data: Laboratory Results Test 04/14/25 21:11 04/14/25 19:00 04/14/25 18:49 04/14/25 17:40 Troponin I High Sensitivity < 3 ng/L (</=34) Urine Color Light-yellow (Yellow) Urine Clarity Turbid (Clear) Urine pH 6.0 (5.0-9.0) Urine Specific Ava 1.014 (1.001-1.035) Urine Protein Negative (Negative) Urine Ketones Negative (Negative) Urine Blood Negative /uL (Negative) Urine Nitrite Negative (Negative) Urine Bilirubin Negative (Negative) Urine Urobilinogen Normal mg/dL (Negative) Urine Leukocyte Esterase Negative /uL (Negative) Urine RBC <1 /hpf (0 - 4) Urine Microscopic WBC 1 /HPF (0-5) Urine Squamous Epithelial Cells Mod /hpf (<5) Urine Bacteria None seen /hpf (None Seen) Urine Mucus Few (None Seen) Urine Glucose Normal mg/dL (Normal) Urine Opiates Screen Neg (NEGATIVE) Urine Fentanyl Screen Neg (NEGATIVE) Urine Barbiturates Screen Neg (NEGATIVE) Urine Phencyclidine Screen Neg (NEGATIVE) Urine Amphetamines Screen Neg (NEGATIVE) Urine Benzodiazepines Screen Neg (NEGATIVE) Urine Cocaine Screen Neg (NEGATIVE) Urine Cannabinoids Screen Neg (NEGATIVE) Sodium Level 141 mmol/L (136-145) Potassium Level 3.5 mmol/L (3.5-5.1) Chloride Level 105 mmol/L (98-107) Carbon Dioxide Level 26 mmol/L (20-31) Anion Gap 10 (5-15) Blood Urea Nitrogen 10 mg/dL (9-23) Creatinine 0.87 mg/dL (0.550-1.02) Glomerular Filtration Rate Calc 95 mL/min (>90) BUN/Creatinine Ratio 11.5 (10.0-20.0) Serum Glucose 88 mg/dL (74-106) Lactic Acid Level 0.7 mmol/L (0.4-2.0) Calcium Level 9.3 mg/dL (8.7-10.4) Magnesium Level 2.0 mg/dL (1.6-2.6) Total Bilirubin 0.7 mg/dL (0.2-1.0) Aspartate Amino Transferase (AST) 26 U/L (13-40) Alanine Aminotransferase (ALT) 52 U/L (7-40) Alkaline Phosphatase 62 U/L (46-116) Total Protein 7.2 g/dL (5.7-8.2) Albumin 4.4 g/dL (3.2-4.8) Thyroid Stimulating Hormone (TSH) 1.91 uIU/mL (0.55-4.78) White Blood Count 6.3 10^3/uL (4.4-10.8) Red Blood Count 4.89 10^6/uL (4.0-5.20) Hemoglobin 13.3 g/dL (12.2-16.2) Hematocrit 39.6 % (36.0-46.0) Mean Corpuscular Volume 80.9 fL (80.0-100.0) Mean Corpuscular Hemoglobin 27.2 pg (28.0-32.0) Mean Corpuscular Hemoglobin Concent 33.6 g/dL (32.0-36.0) Red Cell Distribution Width 14.3 % (11.8-14.3) Platelet Count 224 10^3/uL (140-450) Mean Platelet Volume 9.7 fL (6.9-10.8) Neutrophils (%) (Auto) 59.1 % (37.0-80.0) Lymphocytes (%) (Auto) 32.6 % (10.0-50.0) Monocytes (%) (Auto) 6.3 % (0.0-12.0) Eosinophils (%) (Auto) 1.6 % (0.0-7.0) Basophils (%) (Auto) 0.4 % (0.0-2.0) Neutrophils # (Auto) 3.7 10 ^3/uL (1.6-8.6) Lymphocytes # (Auto) 2.0 10 ^3/uL (0.4-5.4) Monocytes # (Auto) 0.4 10 ^3/uL (0-1.3) Eosinophils # (Auto) 0.1 10 ^3/uL (0-0.8) Basophils # (Auto) 0 10 ^3/uL (0-0.2) Nucleated Red Blood Cells 0.2 % Other Laboratory Tests 04/14/25 18:49 04/14/25 17:40 Brief Hx & Hospital Course: Cherelle Darling, a 24 year old female with past medical history of hypertension, non-hormone secreting pituitary microadenoma, anxiety, depression most likely bipolar disorder presented to the ER with a history of central chest pain, dull and stabbing, constant discomfort. She reports the pain starts spontaneously even when lying down, no relation with exertion. However, the patient reports improvement in her pain while history taking. She also reports measuring her blood pressure in the morning at home which was 160/95 and her heart rate was in 130s. The patient has dizziness, which she describes as the room spinning around her. She has bilateral shoulder pain, lasts for 3 minutes and resolves. She also has nausea, and vomiting occasionally with this constellation of symptoms She also reports having blurry vision. She lost consciousness wants during May this year. She does not have thyroid disorders. Currently no other complaints reported. Few months back, she was diagnosed to have pituitary microadenoma, which is 7 mm, she was told it is non hormone secreting. Past medical history: As above Past surgical history: Denies Menstruation: Regular, LMP:06 April 2025 Allergies: None Home medications: Lexapro, unknown antihypertensive 25 mg. Smoking: None Marijuana: Occasionally, last use was 2 months ago. Alcohol: None Code status: Full code Patient is noted to be seen in the ED, did not signed the AMA form and patient has eloped. Condition at Discharge: Undetermined Final Diagnosis/Problems List Chest pain rule out ACS, could not be ruled out History of pituitary microadenoma Hypertension Discharge Disposition: Eloped Discharge Instruct/Medications Scheduled Dicyclomine Hcl (Bentyl Capsule), 1 CAP PO Q6HPRN Omeprazole Magnesium (Omeprazole), 20 MG PO DAILY Scheduled PRN Ondansetron Odt 4MG Tab (Zofran Po), 4 MG PO Q6HP PRN Discharge Statement: "Patient was advised to return to the ER or call 911 if any headaches, dizziness, shortness of breath, chest pain, abdominal pain, bleeding, fevers, or worsening of medical condition. Patient was counseled about treatment plan, medications, possible side effects, patientverbalized understanding. All questions were answered to the best of my ability. This discharge took greater then 30 minutes in planning, reviewing documentation, counseling the patient, and discussing with other team members." ASSESSMENT ASSESSMENT Assessment Visit Coding STANDARD RES Billing Provider: TERRA STEARNS MD Date of Service if different f: Apr 15, 2025 Common Visit Codes: 44151-GNJ/OBS DISCH DAY >30min RUBIN FORMAN RESIDENT Apr 15, 2025 17:55
== END 2025-04-15 10:25 | disposition left against medical advice (07) | DRG 311 ==
LOC: ER 17:12 → OVERFLOW 04-15 01:54
PROVIDERS: ADMIT Student in an Organized Health Care Education/Training Program; ATTEND Family Medicine
DX: I24.9 Acute ischemic heart disease, unspecified (principal); D35.2 Benign neoplasm of pituitary gland; I10 Essential (primary) hypertension; J45.909 Unspecified asthma, uncomplicated; F31.9 Bipolar disorder, unspecified; Z53.29 Procedure and treatment not carried out because of patient's decision for other reasons; F41.9 Anxiety disorder, unspecified
CPT/HCPCS: 36415; 71045; 80048; 80053; 80307; 81001; 83605; 83735; 84443; 84484; 85025; 93005; 96360; G0378